=== PATIENT | female | born 1975 | race Hispanic/Latino ===

== ENCOUNTER 2024-11-22 11:20 | Emergency (ER) | payer MEDICAID, SELFPAY ==
[2024-11-22 11:31] VITALS: BP 130/57; PULSE 87; RESP 16; TEMP 36.4; O2SAT 99
--- NOTE | 2024-11-22 12:07 | ED_ITS ---
HPI - General Adult General Chief complaint: Anxiety Stated complaint: Right Eye/Anxiety Time Seen by Provider: 11/22/24 12:07 Source: patient, RN notes reviewed and old records reviewed Mode of arrival: ambulatory Limitations: no limitations History of Present Illness HPI narrative: Patient presents with complaints of right eye irritation, vaginal discharge and odor similar to past bouts of bacterial vaginosis, and anxiety. Patient just moved to this area 2 months ago and has not yet established with a primary care provider. Eye symptoms have been present for about 1 week, fishy smelling vaginal discharge for a few days, began immediately after menses ceased. Patient reports that this happens to her frequently and Metrogel has helped in the past. As far as her anxiety goes, she reports she notices this most while she is at work. She denies any suicidal or homicidal ideations. Denies any past diagnosis of anxiety. Related Data Allergies Allergy/AdvReac Type Severity Reaction Status Date / Time No Known Allergies Allergy Verified 11/22/24 12:24 Review of Systems Review of Systems: All systems reviewed & are unremarkable except as noted in HPI and below Constitutional: Constitutional: Reports no additional constitutional complaints Eyes: Eyes: Reports as per HPI and Reports no additional eye complaints ENT: Reports system reviewed and no additional complaints, except as documented Cardiovascular: Cardiovascular: Reports no additional cardiovascular compla ints Respiratory: Respiratory: Reports no additional respiratory complaints Gastrointestinal: Gastrointestinal: Reports no additional gastrointestinal complaints Genitourinary: Genitourinary: Reports no additional female genitourinary com plaints and Reports as per HPI [facility] Social History Social History Substance use type: does not use Comments At the time of my signature, I reviewed and agree with the nursing past medical, surgical, social, and family history. There is no relevant family history pertinent to the patient complaint. Exam Const: General: cooperative, no acute distress, alert and awake Orientation/consciousness: oriented to person, oriented to place and oriented to time HENMT: Head: normal to inspection Eyes: Eyelids: eyelid abnormality right upper eyelid swelling, tenderness and other (pustule to right upper lash line) Resp: Effort & Inspection: normal respiratory effort and able to speak in com plete sentences Auscultation: clear to auscultation bilaterally, no crackles, no rales, no rhonchi and no wheezes Cardio: Palpation: normal PMI Rate: regular rate Rhythm: regular rhythm Heart sounds: S1 normal heart sound present and S2 normal heart sound present Neuro: General: oriented to person, oriented to place and oriented to time Cranial nerves: Yes CN's II-XII intact bilaterally Psych: Appearance: grossly normal Thought process: Normal thought process present Insight: Good insight present (Psych) Judgement: Good judgement present (Psych) Course Course Level of Care: Express Care Visit Vital Signs Vital signs: Vital Signs Temperature 97.6 F 11/22/24 11:31 Pulse Rate 87 11/22/24 11:31 Respiratory Rate 16 11/22/24 11:31 Blood Pressure 130/57 L 11/22/24 11:31 Pulse Oximetry 99 11/22/24 11:31 Oxygen Delivery Room Air 11/22/24 11:31 Temperature 97.6 F 11/22/24 11:31 Pulse Rate 87 11/22/24 11:31 Respiratory Rate 16 11/22/24 11:31 Blood Pressure 130/57 L 11/22/24 11:31 Pulse Oximetry 99 11/22/24 11:31 Oxygen Delivery Room Air 11/22/24 11:31 Reviewed Medical Decision Making MDM Narrative Medical decision making narrative: Discussed with patient that we do not initiate treatment for anxiety in this setting, she was given a list of primary care providers in advised to go to emergency department if symptoms worsen. Right eye exam consistent with chalazion. Start antibiotic therapy. Patient describes symptoms consistent with bacterial vaginosis, reports that she gets this often at the end of her menses. Will treat as such Discharge instructions reviewed with patient, as well as provided in writing per nursing staff. The instructions also include specific and strict return/GO TO THE ER as well as f/u information. All questions have been answered, and the patient deny any further questions with discharge and discharge plan. Some parts of this dictation were generated by voice recognition software and may contain typographical and/or grammatical inaccuracies. Medical Records Medical records reviewed: Yes I reviewed the external patient's medical records. Vital Signs Vital Signs: Vital Signs Temperature 97.6 F 11/22/24 11:31 Pulse Rate 87 11/22/24 11:31 Respiratory Rate 16 11/22/24 11:31 Blood Pressure 130/57 L 11/22/24 11:31 Pulse Oximetry 99 11/22/24 11:31 Oxygen Delivery Room Air 11/22/24 11:31 Temperature 97.6 F 11/22/24 11:31 Pulse Rate 87 11/22/24 11:31 Respiratory Rate 16 11/22/24 11:31 Blood Pressure 130/57 L 11/22/24 11:31 Pulse Oximetry 99 11/22/24 11:31 Oxygen Delivery Room Air 11/22/24 11:31 reviewed Lab Data Lab results reviewed: Yes I reviewed the patient's lab results. Lab results narrative: reviewed Discharge Plan Discharge Clinical Impression: Bacterial vaginosis Chalazion Qualifiers: Laterality: left Eyelid: upper Qualified Code(s): H00.14 - Chalazion left upper eyelid Patient Disposition: Home, Self-Care Condition: Stable Instructions: Antibiotic Form, Bacterial Vaginosis (ED), Chalazion (ED) Additional Instructions: Take medications as prescribed. Follow with primary care provider. Emergency department for new or worse symptoms Warm soaks to right eye 3 times daily. Discard any eye cosmetics you have used since infection began Patient Language: Telugu Prescriptions: New amoxicillin-pot clavulanate 875-125 mg tablet 1 tablet PO Q12H Qty: 20 0RF metronidazole 0.75 % (37.5mg/5 gram) gel 1 appful vaginal BID 5 Days Qty: 70 0RF Follow-up/Referrals: PHYSICIAN[facility] [Primary Care Provider] - Time of Disposition: 12:22
== END 2024-11-22 12:25 | disposition home or self-care (01) ==
PROVIDERS: Emergency Provider Nurse Practitioner Family
DX: N76.0 Acute vaginitis (principal); B96.89 Other specified bacterial agents as the cause of diseases classified elsewhere; H00.14 Chalazion left upper eyelid
CPT/HCPCS: 99203; G0463